=== PATIENT | female | born 1945 | race American Indian/Alaskan Native ===

== ENCOUNTER 2017-01-16 08:38 | Outpatient (CLI) | payer MEDICARE ==
--- NOTE | 2017-01-16 12:15 | Mammography Report ---
Screening mammogram: Routine views demonstrate a heterogeneously dense fibroglandular pattern. The distribution is symmetric. A focal area of increased density is identified in the central left breast it is not identified on prior exams dating back to 2015. With this exception the findings are generally unchanged. CAD used. Impression: Left breast asymmetry. Recommendation: Spot compression imaging of the left breast and ultrasound if needed. BI-RADS CATEGORY: 0 = Needs additional imaging evaluation ACR BI-RADS MAMMOGRAPHIC CODES: 0 = Needs additional imaging evaluation; 1 = Negative; 2 = Benign; 3 = Probably benign; 4 = Suspicious; 5 = Malignant; 6 = Known biopsy-proven malignancy COMMENT: 1. Dense breast tissue, i.e., adenosis, fibrocystic changes, etc., may obscure an underlying neoplasm. 2. Approximately 10% of cancers are not detected with mammography. 3. A negative mammography report should not delay biopsy if a clinically suspicious mass is present.
== END 2017-01-16 08:39 | disposition home or self-care (01) ==
LOC: SPVWC 08:38
PROVIDERS: ATTEND Family Medicine
DX: Z12.31 Encounter for screening mammogram for malignant neoplasm of breast (principal)
CPT/HCPCS: 77067; G0202

== ENCOUNTER 2017-03-09 09:27 | Outpatient (CLI) | payer MEDICARE ==
--- NOTE | 2017-03-09 10:12 | Mammography Report ---
Spot compression magnification of leg oval density posterior mid left breast seen on CC view followed by sonographic examination: Findings: On spot magnification view there is persistence of density identified although no distinct mass is seen. No microcalcifications noted. Sonographic examination reveals no cystic or solid mass. Impression: Probably benign density. 6 month followup with mammogram and if necessary sonogram recommended. BI-RADS CATEGORY: 3 = Probably benign ACR BI-RADS MAMMOGRAPHIC CODES: 0 = Needs additional imaging evaluation; 1 = Negative; 2 = Benign; 3 = Probably benign; 4 = Suspicious; 5 = Malignant; 6 = Known biopsy-proven malignancy COMMENT: 1. Dense breast tissue, i.e., adenosis, fibrocystic changes, etc., may obscure an underlying neoplasm. 2. Approximately 10% of cancers are not detected with mammography. 3. A negative mammography report should not delay biopsy if a clinically suspicious mass is present.
== END 2017-03-09 09:28 | disposition home or self-care (01) ==
LOC: SPVWC 09:27
PROVIDERS: ATTEND Family Medicine
DX: R92.8 Other abnormal and inconclusive findings on diagnostic imaging of breast (principal)